=== PATIENT | female | born 1980 | race Caucasian/White ===

== ENCOUNTER 2018-09-22 15:31 | Emergency (ER) | payer OTHER ==
[2018-09-22] MEDS ORDERED: SODIUM CHLORIDE 0.9% 1,000 ML IV STA (15:49)
[2018-09-22] MEDS ORDERED: IPRATROPIUM-ALBUTEROL 3 ML NEB INHALATION STA (15:49)
--- NOTE | 2018-09-22 15:52 | ED ---
General Adult HPI - General Chief complaint: Shortness of Breath Stated complaint: Rule out PE Time Seen by Provider: 09/22/18 15:42 Source: patient, RN notes reviewed Mode of arrival: wheelchair Limitations: no limitations - History of Present Illness Initial comments: Patient is a pleasant 38-year-old female presenting to the emergency department with difficulty in breathing. Patient has had mild symptoms for the past couple of weeks. Patient did have mild shortness of breath and body aches. No fever. No upper respiratory symptoms otherwise. Symptoms significantly worsen today. Patient is a smoker. Patient did see her doctor again and was advised to have computed tomography scan done of her chest. Patient did have recent chest x-ray which had a questionable spot and was started on antibiotics without improvement. No leg pain or leg swelling. No history of similar symptoms previously. Patient does admit to having some mild tightness in her central chest region. - Related Data Home Medications Medication Instructions Recorded Confirmed Multivitamins, Thera [Multivitamin 1 tab PO DAILY 09/22/18 09/22/18 (formulary)] Previous Rx's Medication Instructions Recorded Albuterol Inhaler [Ventolin Hfa 2 puff INHALATION Q4HR PRN #1 09/22/18 Inhaler] inhaler predniSONE 20 mg PO BID #8 tab 09/22/18 Allergies Allergy/AdvReac Type Severity Reaction Status Date / Time No Known Allergies Allergy Verified 09/22/18 16:04 Review of Systems ROS Statement: Those systems with pertinent positive or pertinent negative responses have been documented in the HPI. ROS Other: All systems not noted in ROS Statement are negative. Constitutional: Denies: fever Eyes: Denies: eye pain ENT: Denies: ear pain, throat pain, congestion Respiratory: Reports: dyspnea. Denies: cough Cardiovascular: Reports: as per HPI, chest pain Endocrine: Denies: fatigue Gastrointestinal: Denies: abdominal pain Genitourinary: Denies: dysuria Musculoskeletal: Denies: back pain Skin: Denies: rash Neurological: Denies: weakness Past Medical History History of Any Multi-Drug Resistant Organisms: None Reported Additional Past Surgical History / Comment(s): chest tube due to spontaneous collapsed lung Past Psychological History: No Psychological Hx Reported Smoking Status: Current every day smoker Past Alcohol Use History: None Reported Past Drug Use History: None Reported General Exam Limitations: no limitations General appearance: alert, in no apparent distress Head exam: Present: atraumatic Eye exam: Present: normal appearance, PERRL ENT exam: Present: normal oropharynx Neck exam: Present: normal inspection Respiratory exam: Present: decreased breath sounds Cardiovascular Exam: Present: regular rate, normal rhythm Expanded Peripheral pulses: 2+: Radial (R), Radial (L), Posterior Tibialis (R), Posterior Tibialis (L) GI/Abdominal exam: Present: soft. Absent: distended, tenderness Extremities exam: Present: normal inspection. Absent: pedal edema, calf tenderness Back exam: Present: normal inspection Neurological exam: Present: alert Psychiatric exam: Present: normal affect, normal mood Skin exam: Present: normal color Course Vital Signs 09/22/18 09/22/18 09/22/18 15:34 16:04 16:10 Temperature 98.5 F Pulse Rate 88 80 77 Respiratory 18 16 16 Rate Blood Pressure 131/75 O2 Sat by Pulse 97 Oximetry EKG Findings - EKG Comments: EKG Findings:: Normal sinus rhythm 87. UT 1:30. QRS 86. QT 350. QTC 421. Normal axis. Normal QRS. No acute ST change. Medical Decision Making - Medical Decision Making Patient reevaluated and evaluated and feels somewhat better. Patient does have increased air exchange, still no wheezing. Vital signs are stable. Patient updated on results and recommendation for admission. Patient is made aware that heart problems have not been ruled out and testing and emergency department is limited. Patient is also recommended admission for further improvement of breathing status. Patient states she feels improved however breathing is not quite back to normal. Patient does demonstrate medical decision making. Patient states she cannot see in the hospital and will leave AGAINST MEDICAL ADVICE. - Lab Data Result diagrams: 09/22/18 15:53 09/22/18 15:53 Lab Results 09/22/18 09/22/18 09/22/18 Range/Units 15:53 15:53 15:53 WBC 9.8 (3.8-10.6) k/uL RBC 5.17 (3.80-5.40) m/uL Hgb 14.9 (11.4-16.0) gm/dL Hct 45.7 (34.0-46.0) % MCV 88.4 (80.0-100.0) fL MCH 28.8 (25.0-35.0) pg MCHC 32.6 (31.0-37.0) g/dL RDW 13.1 (11.5-15.5) % Plt Count 304 (150-450) k/uL Neutrophils % 70 % Lymphocytes % 20 % Monocytes % 5 % Eosinophils % 4 % Basophils % 1 % Neutrophils # 6.9 (1.3-7.7) k/uL Lymphocytes # 2.0 (1.0-4.8) k/uL Monocytes # 0.5 (0-1.0) k/uL Eosinophils # 0.4 (0-0.7) k/uL Basophils # 0.1 (0-0.2) k/uL PT (9.0-12.0) sec INR (<1.2) APTT (22.0-30.0) sec Sodium 139 (137-145) mmol/L Potassium 3.8 (3.5-5.1) mmol/L Chloride 107 (98-107) mmol/L Carbon Dioxide 24 (22-30) mmol/L Anion Gap 8 mmol/L BUN 14 (7-17) mg/dL Creatinine 0.67 (0.52-1.04) mg/dL Est GFR (CKD-EPI)AfAm >90 (>60 ml/min/1.73 sqM) Est GFR (CKD-EPI)NonAf >90 (>60 ml/min/1.73 sqM) Glucose 74 (74-99) mg/dL Calcium 9.6 (8.4-10.2) mg/dL Total Bilirubin 0.5 (0.2-1.3) mg/dL AST 19 (14-36) U/L ALT 29 (9-52) U/L Alkaline Phosphatase 40 (38-126) U/L Total Creatine Kinase 41 (30-135) U/L CK-MB (CK-2) 0.2 (0.0-2.4) ng/mL CK-MB (CK-2) Rel Index 0.5 Troponin I <0.012 (0.000-0.034) ng/mL NT-Pro-B Natriuret Pep pg/mL Total Protein 7.5 (6.3-8.2) g/dL Albumin 4.4 (3.5-5.0) g/dL 09/22/18 09/22/18 Range/Units 15:53 15:53 WBC (3.8-10.6) k/uL RBC (3.80-5.40) m/uL Hgb (11.4-16.0) gm/dL Hct (34.0-46.0) % MCV (80.0-100.0) fL MCH (25.0-35.0) pg MCHC (31.0-37.0) g/dL RDW (11.5-15.5) % Plt Count (150-450) k/uL Neutrophils % % Lymphocytes % % Monocytes % % Eosinophils % % Basophils % % Neutrophils # (1.3-7.7) k/uL Lymphocytes # (1.0-4.8) k/uL Monocytes # (0-1.0) k/uL Eosinophils # (0-0.7) k/uL Basophils # (0-0.2) k/uL PT 9.8 (9.0-12.0) sec INR 0.9 (<1.2) APTT 24.6 (22.0-30.0) sec Sodium (137-145) mmol/L Potassium (3.5-5.1) mmol/L Chloride (98-107) mmol/L Carbon Dioxide (22-30) mmol/L Anion Gap mmol/L BUN (7-17) mg/dL Creatinine (0.52-1.04) mg/dL Est GFR (CKD-EPI)AfAm (>60 ml/min/1.73 sqM) Est GFR (CKD-EPI)NonAf (>60 ml/min/1.73 sqM) Glucose (74-99) mg/dL Calcium (8.4-10.2) mg/dL Total Bilirubin (0.2-1.3) mg/dL AST (14-36) U/L ALT (9-52) U/L Alkaline Phosphatase (38-126) U/L Total Creatine Kinase (30-135) U/L CK-MB (CK-2) (0.0-2.4) ng/mL CK-MB (CK-2) Rel Index Troponin I (0.000-0.034) ng/mL NT-Pro-B Natriuret Pep 62 pg/mL Total Protein (6.3-8.2) g/dL Albumin (3.5-5.0) g/dL - Radiology Data Radiology results: report reviewed (Computed tomography scan of the chest negative for PE, emphysematous changes are present.) Disposition Clinical Impression: Dyspnea Disposition: HOME SELF-CARE Condition: Stable Instructions (If sedation given, give patient instructions): Dyspnea (ED), Emphysema (ED) Additional Instructions: Please follow-up with primary care physician tomorrow. Return for difficulty in breathing, fevers, chest pain, worsening symptoms or any other concerns. You are leaving AGAINST MEDICAL ADVICE. Prescriptions: Albuterol Inhaler [Ventolin Hfa Inhaler] 2 puff INHALATION Q4HR PRN #1 inhaler PRN Reason: Dyspnea predniSONE 20 mg PO BID #8 tab Is patient prescribed a controlled substance at d/c from ED?: No Referrals: Beverley Lane DO [Primary Care Provider] - 1-2 days Time of Disposition: 17:32
[2018-09-22 16:08] LABS: Basophils # (A) 0.1 k/uL (0-0.2); Basophils % (A) 1 %; Eosinophils # (A) 0.4 k/uL (0-0.7); Eosinophils % (A) 4 %; HCT 45.7 % (34.0-46.0); HGB 14.9 gm/dL (11.4-16.0); Lymphocytes % (A) 20 %; MCH 28.8 pg (25.0-35.0); MCHC 32.6 g/dL (31.0-37.0); MCV 88.4 fL (80.0-100.0); Monocytes # (A) 0.5 k/uL (0-1.0); Monocytes % (A) 5 %; Neutrophils # (A) 6.9 k/uL (1.3-7.7); Neutrophils % (A) 70 %; Platelet Count 304 k/uL (150-450); RBC 5.17 m/uL (3.80-5.40); RDW 13.1 % (11.5-15.5); WBC 9.8 k/uL (3.8-10.6)
[2018-09-22 16:23] LABS: INR 0.9 (<1.2); Partial Thromboplastin Time 24.6 sec (22.0-30.0); Prothrombin Time 9.8 sec (9.0-12.0)
[2018-09-22 16:28] LABS: ALT 29 U/L (9-52); AST 19 U/L (14-36); Albumin 4.4 g/dL (3.5-5.0); Alkaline Phosphatase 40 U/L (38-126); Anion Gap 8 mmol/L; Blood Urea Nitrogen 14 mg/dL (7-17); Calcium 9.6 mg/dL (8.4-10.2); Carbon Dioxide 24 mmol/L (22-30); Chloride 107 mmol/L (98-107); Glucose 74 mg/dL (74-99); Potassium 3.8 mmol/L (3.5-5.1); Sodium 139 mmol/L (137-145); Total Bilirubin 0.5 mg/dL (0.2-1.3); Total Protein 7.5 g/dL (6.3-8.2)
[2018-09-22 16:29] LABS: Creatine Kinase 41 U/L (30-135)
[2018-09-22 16:42] LABS: Creatine Kinase MB 0.2 ng/mL (0.0-2.4); Troponin I <0.012 ng/mL (0.000-0.034)
--- NOTE | 2018-09-22 16:49 | CT ---
EXAMINATION TYPE: CT angio chest DATE OF EXAM: 09/22/2018 4:36 PM COMPARISON: None HISTORY: Shortness of breath abd chest pain CT DLP: 368.5 mGycm Automated exposure control for dose reduction was used. CONTRAST: CTA scan of the thorax is performed with IV Contrast, patient injected with 100 mL of Isovue 370, pul monary embolism protocol. There are 3-D post processed images.. FINDINGS: There is diffuse pulmonary emphysema. There is no evidence of a pulmonary mass. There is no pleural e ffusion. The heart size is normal. There is minimal atelectasis at the posterior lung bases. There is no pericardial effusion. Upper abdominal soft tissues are unremarkable. The bony thorax is intact. T here is no bony destructive process. There are no hilar masses. There is no mediastinal adenopathy. Thoracic aorta shows no sign of aneury sm or dissection. There is normal contrast opacification of the pulmonary arteries. I see no filling defect. IMPRESSION: Emphysema. No evidence of pulmonary embolism. Normal heart. IMPRESSION:
[2018-09-22] MEDS ORDERED: predniSONE 50 MG TAB PO STA (17:33)
[2018-09-22 18:04] VITALS: BP 128/78; PULSE 76; RESP 18; TEMP 98.2
== END 2018-09-22 18:04 | disposition home or self-care (01) ==
LOC: EC 15:31
DX: R06.02 Shortness of breath (principal); R07.89 Other chest pain; F17.200 Nicotine dependence, unspecified, uncomplicated; Z53.29 Procedure and treatment not carried out because of patient's decision for other reasons
CPT/HCPCS: 36415; 94640; 93005; 83880; 80053; 82550; 82553; 84484; 85025; 85610; 85730; 71275; 99285; 96360; 96361; J7512; Q9967

== ENCOUNTER → 2019-05-30 | Outpatient (CLI) | payer OTHER ==
--- NOTE | 2019-05-30 07:25 | MR ---
EXAMINATION TYPE: MR lumbar spine wo/w con DATE OF EXAM: 05/30/2019 COMPARISON: MRI lumbar spine January 05, 2012. HISTORY: Severe low back pain for 3 months into bilateral lower extremities per patient. TECHNIQUE: Multiplanar, multisequence images of the lumbar spine is performed without and with IV contrast, util izing 9 mL intravenous Gadavist FINDINGS: Sagittal images of the lumbar spine show vertebral body heights and alignment to remain sat isfactory. Multilevel disc desiccation is seen. Persistent mild to moderate disc space narrowing L1-L2 level and mild disc space narrowing L5-S1 level with posterior annular tear redemonstrated. The conus medulla ris remains stable in position ending mid L2 level. The bone marrow signal intensity remains within normal limits. Postcontrast images show some enhancing lumbosacral nerve roots which is nonspecific f inding. Axial images show the T12-L1 level to remain within normal limits. Axial images at the L1-L2 level redemonstrates broad-based right paracentral disc protrusion effacing the right anterolateral thecal sac on axial image 23. Bilateral neural foramina are patent. No signi ficant change from prior. Axial images at the L2-L3 and L3-L4 levels remain within normal limits. Axial images at the L4-L5 level show mild facet degenerative changes and ligamentum flavum hypertroph y with mild broad disc bulge. Spinal canal is minimally effaced anteriorly. There is mild to moderate right-sided anterior inferior neural foraminal narrowing due to right foraminal disc protrusion comp onent axial image 7 and sagittal image 11. This is more prominent from prior. Left-sided neural brian en is patent. Axial images at the L5-S1 level shows a right paracentral/foraminal disc protrusion mildly effacing a nterolateral thecal sac. Bilateral neural foramina remain patent. No significant change from prior. No suspicious incidental retroperitoneal findings are seen. No suspicious enhancement is noted. IMPRESSION: Multilevel degenerative changes in the lumbar spine redemonstrated as detailed above, so me progression in findings at L4-L5 level noted from prior MRI.
== END | disposition home or self-care (01) ==
LOC: RADMRIMAIN 06:15
PROVIDERS: ATTEND Family Medicine
DX: M47.816 Spondylosis without myelopathy or radiculopathy, lumbar region (principal)
CPT/HCPCS: 72158; A9585